=== PATIENT | male | born 1960 | race Caucasian/White ===

== ENCOUNTER 2017-04-21 08:25 | Emergency (ER) | payer SELFPAY ==
--- NOTE | 2017-04-22 08:10 | ER ---
ADMIT: 04/21/2017 RM/LOC: ER [facility] MR#: [id number] [id number] [place], [place] [address] JAVED ZURITA [address] [id number] Emergency Room Report SEX: M AGE: 57 : 1960 DATE: 04/21/2017 ADDENDUM: See T-sheet for complete H and P. A 57-year-old male with history of seizure disorder, normally sees [facility] who comes in with complaints of a seizure. He was working at the [employer] when it occurred. He has poor recollection of what happened, but witnesses state that he did have what appears to be a grand mall seizure lasted less than a minute. By the time he arrives, he is postictal and is limited on his ability to give me answers to questions initially that does improve during his stay and is more alert. He states he is on Dilantin 100 mg t.i.d. and has been on this for a while but freely admits that he misses doses quite frequently. On physical exam, he has an abrasion to his right cheek, abrasion to dorsum of his right hand and abrasions to bilateral knees with no other signs of injury or trauma. He has no complaints other than feeling a little tired and actually states he wants to go home. I told him, I wanted to check a Dilantin level and initially agreed but then afterwards denied allowing us to draw blood. While he was in the ER, he did have another seizure that lasted few seconds and was witnessed by myself. He did have a loss of conscious with this and some postictal afterwards with generalized shaking all over. At that point, I did check a Dilantin level, and he was subtherapeutic. He was given Dilantin IV in the emergency department and is discharged home to continue his dosing to take it as scheduled and trying to miss doses. He is to follow up in the next week to get his Dilantin level checked and return to the ER for any concerning symptoms. DIAGNOSES: 1. Seizure disorder. 2. Subtherapeutic Dilantin. 3. Seizure. 4. Abrasions. Jamey Ceja MD/ ghanshyam JOB #: [id number] CC: Jamey Ceja MD, Attending Physician UNKNOWN, Family Physician
== END 2017-04-21 13:00 | disposition home or self-care (01) ==
LOC: ER 08:25
DX: S00.81XA Abrasion of other part of head, initial encounter (principal); G40.909 Epilepsy, unspecified, not intractable, without status epilepticus; Z79.899 Other long term (current) drug therapy; X58.XXXA Exposure to other specified factors, initial encounter

== ENCOUNTER 2017-08-21 15:12 | Emergency (ER) | payer SELFPAY ==
--- NOTE | ~2017-08-21 | ER ---
ADMIT: 08/21/2017 RM/LOC: ER [facility] MR#: [id number] [address] [address] JAVED ZURITA [address] [address] Emergency Room Report SEX: M AGE: 57 : 1960 DATE: 08/21/2017 TIME: 1512 hours. Please refer to my T-sheet for complete H and P. Briefly, the patient is a 57-year-old, who comes in with a seizure witnessed by his brother. He said it was pretty significant. He has a known seizure disorder. He is supposed to be taking Dilantin, sounds like he has been trying to take inconsistently. He also has a history of meth abuse, his last use was 4 to 5 days ago. He has been under more stress. His brother says they were talking about a car when he had the seizure, came in by ambulance. The ambulance did not give him any medications, established an IV and he was postictal when he arrived in our ER. PHYSICAL EXAMINATION: VITAL SIGNS: Blood pressure 117/76, pulse 100, respirations 26, temperature 98.1, and saturating 92% on 6 L when he got here. HEENT: Grossly normal except he has a small abrasion to his tongue. LUNGS: Clear with a trace of wheeze. HEART: Regular. ABDOMEN: Soft. SKIN: No rash. NEURO: He is a little postictal but nonfocal. EMERGENCY DEPARTMENT COURSE: I recently ordered a Dilantin level. CBC and a complete metabolic. He thought we were getting ready to draw his blood, he refused. We had a long discussion with him. We took him off oxygen. His sats were 90% to 92%. He was adamant that he was going to leave against medical advice. His brother was there, who witnessed this. I told him the risks and benefits. Told him that I think we should check level, and he said he would take an extra dose of Dilantin because he probably skipped one and refused to have any tests done and was going to leave even after risks and ADMIT: 08/21/2017 RM/LOC: ER [facility] MR#: [id number] [address] [address] [place] [address] Emergency Room Report SEX: M AGE: 57 : 1960 benefits were explained by myself. ASSESSMENT: 1. Seizure generalized with a history of epilepsy. 2. Meth use. 3. Noncompliant. 4. Leaving against medical advice. PLAN: Told him to return if he changes his mind. Take his medications as directed. Avoid meth and cigarettes and follow up with Dr. Hernández. Return if worse. Cayetano Salomon MD/ ghanshyam JOB #: [id number] CC: Cayetano Salomon MD, Attending Physician UNKNOWN, Family Physician
== END 2017-08-21 16:38 | disposition left against medical advice (07) ==
LOC: ER 15:12
DX: G40.409 Other generalized epilepsy and epileptic syndromes, not intractable, without status epilepticus (principal); F15.90 Other stimulant use, unspecified, uncomplicated; Z79.899 Other long term (current) drug therapy